=== PATIENT | male | born 1940 | race Caucasian/White ===

== ENCOUNTER 2022-02-26 17:53 | Emergency (ER) | payer MEDICARE ==
[2022-02-26 19:00] VITALS: RESP 18; TEMP 98.7
--- NOTE | 2022-02-26 20:33 | ED ---
General Adult HPI - General Chief complaint: Extremity Problem,Nontraumatic Stated complaint: Rt Elbow Pain,Swelling, Urgent Care sent pt in Source: patient, family Mode of arrival: ambulatory Limitations: no limitations - History of Present Illness Initial comments: Dictation was produced using [employer] dictation software. please excuse any grammatical, word or spelling errors. Chief Complaint: 81-year-old well-appearing male presents to emergency department for concerns of septic bursitis History of Present Illness: 81-year-old male he believes that he struck his elbow 3 days ago. He states that a couple days later that he had some swelling of his elbow. Patient has no pain whenever he flexes his elbow. He has very minimal symptoms whenever he presses on the inflamed area. States that it's been slightly erythematous of the last couple days. Denies any constitutional symptoms. Went to an urgent care today rate told to come to the ER for concerns of septic bursitis. I'm. He doesn't have any symptoms besides some swelling in his elbow that he states is not painful. The ROS documented in this emergency department record has been reviewed and confirmed by me. Those systems with pertinent positive or negative responses have been documented in the HPI. All other systems are other negative and/or noncontributory. PHYSICAL EXAM: General Impression: Alert and oriented x3, not in acute distress HEENT: Normocephalic atraumatic, extra-ocular movements intact, pupils equal and reactive to light bilaterally, mucous membranes moist. Cardiovascular: Heart regular rate and rhythm Chest: Able to complete full sentences, no retractions, no tachypnea Musculoskeletal: Pulses present and equal in all extremities, no peripheral edema Right upper extremity: There is olecranon bursitis that is erythematous though not warm to the touch, nonpainful indurated Motor: no focal deficits noted Neurological: CN II-XII grossly intact, no focal motor or sensory deficits noted Skin: Intact with no visualized rashes Psych: Normal affect and mood ED course: 81-year-old male presents to the emergency department with atraumatic olecranon bursitis. Signs upon arrival are within acceptable limits. Is mildly erythematous however he does not have any other features to suggest that his bursitis is septic. Daughter at the bedside is going away on a trip and is very adamant that his symptoms may reflect septic bursitis. She worries about her fa ther and would prefer that he had blood be drawn to evaluate further for possible infection. Patient does not want to wait around for the results. Labs pending, x-ray shows no acute abnormalities outside for some soft tissue swelling at the olecranon.. He prefers to be discharged and for us to call him with any results. - Related Data Allergies Allergy/AdvReac Type Severity Reaction Status Date / Time No Known Allergies Allergy Verified 02/26/22 19:00 Review of Systems ROS Statement: Those systems with pertinent positive or pertinent negative responses have been documented in the HPI. ROS Other: All systems not noted in ROS Statement are negative. Past Medical History Past Medical History: Diabetes Mellitus, Hyperlipidemia, Hypertension History of Any Multi-Drug Resistant Organisms: None Reported Past Surgical History: No Surgical Hx Reported Past Psychological History: No Psychological Hx Reported Smoking Status: Never smoker Past Alcohol Use History: None Reported Past Drug Use History: None Reported General Exam Limitations: no limitations Course Vital Signs 02/26/22 18:53 Temperature 98.7 F Pulse Rate 58 L Respiratory 18 Rate Blood Pressure 155/67 O2 Sat by Pulse 98 Oximetry Medical Decision Making - Lab Data Result diagrams: 02/26/22 20:40 Lab Results 02/26/22 Range/Units 20:40 WBC 8.0 (3.8-10.6) k/uL RBC 5.26 (4.30-5.90) m/uL Hgb 17.0 (13.0-17.5) gm/dL Hct 48.8 (39.0-53.0) % MCV 92.9 (80.0-100.0) fL MCH 32.3 (25.0-35.0) pg MCHC 34.8 (31.0-37.0) g/dL RDW 13.7 (11.5-15.5) % Plt Count 159 (150-450) k/uL MPV 8.5 Neutrophils % 70 % Lymphocytes % 22 % Monocytes % 5 % Eosinophils % 2 % Basophils % 1 % Neutrophils # 5.6 (1.3-7.7) k/uL Lymphocytes # 1.7 (1.0-4.8) k/uL Monocytes # 0.4 (0-1.0) k/uL Eosinophils # 0.2 (0-0.7) k/uL Basophils # 0.0 (0-0.2) k/uL Disposition Clinical Impression: Bursitis of elbow Disposition: HOME SELF-CARE Condition: Good Instructions (If sedation given, give patient instructions): Elbow Bursitis (ED) Is patient prescribed a controlled substance at d/c from ED?: No Referrals: Fritz Aguilar MD [Primary Care Provider] - 1-2 days
[2022-02-26 20:51] LABS: Basophils % (A) 1 %; Eosinophils # (A) 0.2 k/uL (0-0.7); Eosinophils % (A) 2 %; HCT 48.8 % (39.0-53.0); Lymphocytes # (A) 1.7 k/uL (1.0-4.8); Lymphocytes % (A) 22 %; MCH 32.3 pg (25.0-35.0); MCHC 34.8 g/dL (31.0-37.0); MCV 92.9 fL (80.0-100.0); Mean Platelet Volume 8.5; Monocytes # (A) 0.4 k/uL (0-1.0); Monocytes % (A) 5 %; Neutrophils # (A) 5.6 k/uL (1.3-7.7); Neutrophils % (A) 70 %; Platelet Count 159 k/uL (150-450); RBC 5.26 m/uL (4.30-5.90); RDW 13.7 % (11.5-15.5)
[2022-02-26 21:02] LABS: C Reactive Protein 6.8 mg/dL (<1.0); Calcium 9.4 mg/dL (8.4-10.2); Potassium 4.8 mmol/L (3.5-5.1)
[2022-02-26 21:14] VITALS: BP 174/70; PULSE 60
--- NOTE | 2022-02-26 21:22 | XR ---
EXAMINATION TYPE: XR elbow complete RT DATE OF EXAM: 02/26/2022 COMPARISON: NONE HISTORY: Pain TECHNIQUE: 3 views FINDINGS: There is spurring on the olecranon process of the ulna. I see no fracture nor dislocation. There is no sign of elbow joint effusion. IMPRESSION: Degenerative spurring on the olecranon process. There is posterior soft tissue swelling t hat could be olecranon bursitis. No fracture.
[2022-02-26 21:50] LABS: Erythrocyte Sedimentation Rate 28 mm/hr (0-15)
== END 2022-02-26 21:15 | disposition home or self-care (01) ==
LOC: EC 17:53
DX: M70.32 Other bursitis of elbow, left elbow (principal); E11.9 Type 2 diabetes mellitus without complications; I10 Essential (primary) hypertension
CPT/HCPCS: 36415; 80048; 85025; 85652; 86140; 99283

== ENCOUNTER → 2023-04-14 | Outpatient (CLI) | payer MEDICARE ==
[2023-04-14 11:48] LABS: ALT 17 U/L (10-49); AST 16 U/L (14-35); Albumin 4.2 d/dL (3.8-4.9); Albumin/Globulin Ratio 1.83 Ratio (1.60-3.17); Alkaline Phosphatase 49 U/L (41-126); BUN/Creat Ratio 20.82 Ratio (12.00-20.00); Blood Urea Nitrogen 22.9 mg/dL (9.0-27.0); Calcium 9.6 mg/dL (8.7-10.3); Carbon Dioxide 26.7 mmol/L (21.6-31.8); Chloride 105 mmol/L (96-109); Chol/HDL Ratio 3.52 Ratio; Globulin 2.3 d/dL (1.6-3.3); Glucose 206 mg/dL (70-110); LDL Cholesterol,Calculated 9.7 mg/dL (0.0-131.0); Potassium 4.6 mmol/L (3.5-5.5); Sodium 142 mmol/L (135-145); Total Bilirubin 0.5 mg/dL (0.3-1.2); Total Protein 6.5 d/dL (6.2-8.2)
[2023-04-14 12:58] LABS: INR <0.93 sec (0.93-1.11); Prothrombin Time 10.4 sec (9.9-11.9)
[2023-04-14 13:40] LABS: Basophils # (A) 0.07 X 10*3/uL (0.00-0.10); Basophils % (A) 1.3 %; Eosinophils # (A) 0.23 X 10*3/uL (0.04-0.35); Eosinophils % (A) 4.1 %; HCT 46.4 % (39.6-50.0); HGB 15.5 d/dL (12.0-15.0); Lymphocytes # (A) 1.43 X 10*3/uL (0.90-5.00); Lymphocytes % (A) 25.5 %; MCH 31.1 pg (27.0-32.0); MCHC 33.4 d/dL (32.0-37.0); Mean Platelet Volume 11.9 FL (9.5-12.2); Monocytes # (A) 0.51 X 10*3/uL (0.20-1.00); Monocytes % (A) 9.1 %; NRBC Per 100 WBC 0 X 10*3/uL (0.00-0.01); Neutrophils # (A) 3.34 X 10*3/uL (1.80-7.70); Neutrophils % (A) 59.6 %; Platelet Count 171 X 10*3/uL (140-440); RBC 4.99 X 10*6/uL (4.40-5.60); RDW 13.3 % (11.5-14.5)
== END | disposition home or self-care (01) ==
LOC: LABWHC1 07:41
PROVIDERS: ATTEND Internal Medicine Cardiovascular Disease
DX: Z01.812 Encounter for preprocedural laboratory examination (principal)
CPT/HCPCS: 36415; 80053; 80061; 83036; 83721; 85025; 85610

== ENCOUNTER → 2023-10-12 | Outpatient (CLI) | payer MEDICARE ==
--- NOTE | 2023-10-13 17:50 | MR ---
EXAMINATION TYPE: MR Prostate wo/w con DATE OF EXAM: 10/12/2023 9:43 AM COMPARISON: Ultrasound 01/07/2012. CLINICAL INDICATION:Male, 83 years old with history of elevated PSA TECHNIQUE: Multi-planar, multi-sequence imaging of the pelvis is performed prior to and following the uncomplicated administration of bolus intravenous gadolinium. CONTRAST: 7.5 cc Gadavist. Interpretive Criteria: PI-RADS v2.1 SERUM PSA: 8.3 on 05/15/2023.. 5.79 on 05/21/2023.. SURGICAL PATHOLOGY: No data available. FINDINGS: Prostatic dimensions: 5.9 x 5.5 x 5.1 cm. Ellipsoid Volume:86.65 (PSA density=0.10 ng/mL/mL) CENTRAL GLAND (Central and Transition Zones/CZ+TZ): There is a small area of low T2 high DWI low ADC signal measuring 10 x 6 mm in the right gland base (PI-RADS 4) there is arterial phase enhancement within this lesion. Multiple bilateral, heterogenous appearing hypertrophic stromal nodules, without suspicious lesion. M edian lobe hypertrophy with protrusion into the base of the bladder PERIPHERAL ZONE (PZ): Limited evaluation of the posterior peripheral zone secondary to gas in the rectum and diffusion weig hted imaging. Atrophic appearing due to central gland hypertrophy changes. Bilateral linear, indistin ct wedgelike areas of low ADC, and low T2 signal, No evidence of masslike abnormality, or localized p erfusional hypervascularity, to further suggest a focus of clinically significant prostate cancer. (P I-RADS 2) SEMINAL VESICLES (SV): Symmetric and unremarkable. PERIPROSTATIC TISSUES: Unremarkable. LYMPH NODES: No enlarged pelvic lymph node. REMAINING PELVIS: Bladder wall is within normal limits given distention. No abnormal free or organized intrapelvic fluid collection. No pathologic bowel dilation or mural thickening. Bilateral fat containing inguinal hernias. Small bilateral hydroceles. OSSEOUS STRUCTURES: No suspicious osseous abnormality. IMPRESSION: 1. PI-RADS 4 lesion in the right central gland mid gland base measuring 10 x 6 mm. This finding could represent BPH nodule however the margins are obscured due to the heterogenous nature of the prostate gland. 2. Substantial BPH, estimated gland volume 86.65 mL. 3. No suspicious osseous lesion. No lymphadenopathy. No evidence of prostate adenocarcinoma involving the periprostatic tissues.
== END | disposition home or self-care (01) ==
LOC: RADMRIMAIN 08:33
PROVIDERS: ATTEND Internal Medicine
DX: N40.0 Benign prostatic hyperplasia without lower urinary tract symptoms (principal); R97.20 Elevated prostate specific antigen [PSA]
CPT/HCPCS: 72197; A9585